=== PATIENT | male | born 2000 | race African-American/Black ===

== ENCOUNTER 2025-03-19 15:01 | Outpatient (CLI) | payer OTHER, SELFPAY ==
--- NOTE | ~2025-03-19 | XR_ITS ---
EXAMINATION: XR knee RT 3V, 03/19/2025 15:20 CDT HISTORY: Knee pain, R COMPARISON: No comparisons available. Findings: No acute fracture or malalignment. No significant degenerative changes. Soft tissues unremarkable. Impression: No acute fracture or malalignment. Reviewed, dictated and finalized at location P. Impression: No acute fracture or malalignment.
== END 2025-03-19 15:02 | disposition home or self-care (01) ==
LOC: MICIMG 15:11
PROVIDERS: PCP Registered Nurse; Visit Provider Registered Nurse
DX: M25.561 Pain in right knee (principal)
CPT/HCPCS: 73562